=== PATIENT | female | born 1945 | race African-American/Black ===

== ENCOUNTER 2016-09-22 05:55 | Emergency (ER) | payer OTHER ==
[~2016-09-22] VITALS: Ht 157.5 cm; Wt 73.7 kg
[~2016-09-22 05:55] MED LIST: NOHOMEMEDS
[2016-09-22 06:57] LABS: EOSINOPHIL (%) 0 % (0-5); HEMATOCRIT 42.3 % (36.0-46.0); IMMATURE GRANULOCYTE (%) 0.6 % (0.0-0.7); INSTRUMENT ABS NEUTROPHIL CT 4.6 K/uL; LYMPHOCYTE COUNT 1.1 K/uL (1.0-2.8); MCH 29.8 PG (29.0-34.0); MCHC 32.6 G/DL (30.0-36.0); MCV 91.4 FL (83-99); MEAN PLAT.VOLUME 9.9 uM^3 (9.5-12.4); MONOCYTE (%) 9.5 % (3-12); MONOCYTE COUNT 0.6 K/uL (0-0.8); NEUTROPHIL COUNT 4.6 K/uL (1.8-6.4); PLATELET COUNT 244 K/uL (156-360); RBC DIS.WIDTH-SD 43.7 % (39-53); RED BLOOD COUNT 4.63 M/uL (3.80-5.20); WHITE BLOOD COUNT 6.4 K/uL (4.1-10.2)
[2016-09-22 07:41] LABS: ANION GAP 10 MEQ/L (2-14); CHLORIDE 99 MEQ/L (99-109); POTASSIUM 4.3 MEQ/L (3.7-5.4); SAMPLE HEMOLYSIS CHECK 0; SAMPLE ICTERIC CHECK 0; SAMPLE LIPEMIA CHECK 0; SODIUM 138 MEQ/L (136-147)
[2016-09-22 07:47] LABS: GFR ESTIMATE (CALCULATED) 57 mL/min/; GLUCOSE 94 mg/dL (70-99); UREA NITROGEN (BUN) 19 mg/dL (9-23)
[2016-09-22 11:00] VITALS: BP 160/95
== END 2016-09-22 11:26 | disposition home or self-care (01) ==
LOC: EME 05:55
PROVIDERS: Emergency Medicine
DX: L30.9 Dermatitis, unspecified (principal); R03.0 Elevated blood-pressure reading, without diagnosis of hypertension
CPT/HCPCS: 80048; 85025; 99281; 99285; J1200; J2930; S0028

== ENCOUNTER 2017-05-18 23:42 | Emergency (ER) | payer OTHER ==
[~2017-05-18] VITALS: Ht 157.5 cm; Wt 72.4 kg
[2017-05-19] MEDS ORDERED: PREDNISONE20 MG PO (00:39)
[2017-05-19] MEDS ORDERED: ERYTHROMYC1 APPLICAT BOTH EYES ×2 (00:46)
[2017-05-19 00:53] VITALS: BP 112/84
== END 2017-05-19 00:54 | disposition home or self-care (01) ==
LOC: EME 23:42
DX: T78.3XXA Angioneurotic edema, initial encounter (principal); H10.9 Unspecified conjunctivitis
CPT/HCPCS: 99281; 99283; J1100